=== PATIENT | male | born 1980 | race Two or more races ===

== ENCOUNTER 2017-10-13 13:39 | Emergency (ER) | payer OTHER ==
[~2017-10-13] VITALS: Ht 182.9 cm; Wt 86.0 kg
[2017-10-13] MEDS ORDERED: HYDROmorphone 1 MG/ML, 1ML IM ONE (14:30)
[2017-10-13] MEDS ORDERED: ONDANSETRON ODT 4 MG PO ONE (14:30)
[2017-10-13] MEDS ORDERED: KETOROLAC 30 MG/1 ML IM ONE (14:30)
[2017-10-13] MEDS ORDERED: KETOROLAC 30 MG/1 ML ONE (14:43)
[2017-10-13] MEDS ORDERED: HYDROmorphone 2 MG/ML, 1ML ONE (14:43)
[2017-10-13] MEDS ORDERED: ONDANSETRON ODT 4 MG ONE (14:44)
[2017-10-13 15:37] VITALS: BP 119/74
== END 2017-10-13 15:46 | disposition home or self-care (01) ==
LOC: ED 14:58
DX: M19.042 Primary osteoarthritis, left hand (principal); M19.041 Primary osteoarthritis, right hand
CPT/HCPCS: 96372; 99284; J1170; J1885; Q0162